=== PATIENT | male | born 1945 | race African-American/Black ===

== ENCOUNTER 2016-10-13 08:06 | Emergency (ER) | payer MEDICARE ==
[2016-10-13] MEDS ORDERED: NORMAL SALINE 1000 ML 1,000 ML IV ONE (08:37)
[2016-10-13 08:45] LABS: ABSOLUTE BASOPHILS # (AUTO) 0.1 10^3/uL (0.0-0.2); ABSOLUTE EOSINOPHILS # (AUTO) 0.2 10^3/uL (0.0-0.6); ABSOLUTE LYMPHOCYTES (AUTO) 2.2 10^3/uL (0.5-4.7); ABSOLUTE MONOCYTES (AUTO) 0.5 10^3/uL (0.1-1.4); ABSOLUTE NEUT (AUTO) 2.7 10^3/uL (1.7-8.2); BASOPHILS % (AUTO) 0.9 % (0-2); EOSINOPHILS % (AUTO) 2.9 % (0-6); HEMOGLOBIN 15.3 g/dL (13.5-17.0); HGB HCT DIFFERENCE -1.1; LYMPHOCYTES % (AUTO) 39.6 % (13-45); MEAN CORPUSCULAR HEMOGLOBIN 25.6 pg (27.0-33.4); MEAN CORPUSCULAR HGB CONC 32.7 g/dL (32.0-36.0); MEAN CORPUSCULAR VOLUME 78 fl (80-97); MONOCYTES % (AUTO) 8.8 % (3-13); RED BLOOD COUNT 6.01 10^6/uL (4.35-5.55); RED CELL DISTRIBUTION WIDTH 17.4 % (11.5-14.0); SEGMENTED NEUTROPHILS % (AUTO) 47.8 % (42-78); WHITE BLOOD COUNT 5.7 10^3/uL (4.0-10.5)
[2016-10-13 09:05] LABS: ANION GAP 12 (5-19); BLOOD UREA NITROGEN 11 mg/dL (7-20); CARBON DIOXIDE 26 mmol/L (22-30); CHLORIDE 104 mmol/L (98-107); CREATININE RESULT 0.86 mg/dL (0.52-1.25); GLUCOSE 100 mg/dL (75-110); SODIUM 142.3 mmol/L (137-145)
[2016-10-13] MEDS ORDERED: MECLIZINE HCL 25 MG TABLET PO ONE (09:51)
[2016-10-13 10:01] LABS: APPEARANCE,URINE CLEAR; BILIRUBIN,URINE NEGATIVE (NEGATIVE); GLUCOSE, URINE NEGATIVE (NEGATIVE); KETONES,URINE NEGATIVE (NEGATIVE); LEUKOCYTE ESTERASE,URINE NEGATIVE (NEGATIVE); NITRITE,URINE NEGATIVE (NEGATIVE); PROTEIN,URINE NEGATIVE (NEGATIVE); URINE SPECIFIC GRAVITY 1.008; UROBILINOGEN,URINE NEGATIVE mg/dL (<2.0)
[2016-10-13] MEDS ORDERED: CLONIDINE HCL 0.2 MG TABLET PO ONE (11:05)
[2016-10-13] MEDS ORDERED: CLONIDINE HCL 0.1 MG TABLET PO ONE (11:16)
--- NOTE | 2016-10-13 15:20 | ER Document Report ---
ED General - General Chief Complaint: Dizziness Stated Complaint: DIZZINESS TRAVEL OUTSIDE OF THE [place] IN LAST 30 DAYS: No - HPI Patient complains to provider of: dizziness Notes: Page coming and evaluated for dizziness. Patient states he has become dizzy over the last 24 hours worse when he sits up and tries to walk. Patient states had symptoms similar and was admitted in the past. States he was placed on a medication unaware of any other medication area otherwise patient has no complaints of head pain chest pain shortness of breath palpitations abdominal pain nausea vomiting - Related Data Allergies/Adverse Reactions: No Known Allergies Allergy (Verified 05/22/16 19:51) Past Medical History - Social History Smoking Status: Unknown if Ever Smoked Family History: Reviewed & Not Pertinent - Past Medical History Cardiac Medical History: Reports: Hx Hypercholesterolemia - DX FIVE YEARS AGO, Hx Hypertension - DX 20 YEARS AGO Pulmonary Medical History: Reports: Hx Pneumonia - TWO MONTHS AGO Denies: Hx Tuberculosis Endocrine Medical History: Reports: Hx Diabetes Mellitus Type 2 - DX 12 YEARS AGO Renal/ Medical History: Reports: Hx Benign Prostatic Hyperplasia GI Medical History: Reports: Hx Gastroesophageal Reflux Disease Musculoskeltal Medical History: Reports Hx Arthritis Psychiatric Medical History: Denies: Hx Depression Past Surgical History: Reports: Hx Orthopedic Surgery - Rotator cuff surgery both shoulders. Neck surgery after a fracture.. Denies: Hx Adenoidectomy - Immunizations Hx Diphtheria, Pertussis, Tetanus Vaccination: Yes Hx Pneumococcal Vaccination: 07/21/11 Review of Systems - Review of Systems Constitutional: No symptoms reported EENT: No symptoms reported Cardiovascular: No symptoms reported Respiratory: No symptoms reported Gastrointestinal: No symptoms reported Genitourinary: No symptoms reported Male Genitourinary: No symptoms reported Musculoskeletal: No symptoms reported Skin: No symptoms reported Hematologic/Lymphatic: No symptoms reported Neurological/Psychological: Other - Dizziness -: Yes All other systems reviewed and negative Physical Exam - Vital signs Vitals: Resp 14 10/13/16 08:30 Interpretation: Normal - General General appearance: Appears well, Alert - HEENT Head: Normocephalic, Atraumatic Eyes: Normal Pupils: PERRL - Respiratory Respiratory status: No respiratory distress Chest status: Nontender Breath sounds: Normal Chest palpation: Normal - Cardiovascular Rhythm: Regular Heart sounds: Normal auscultation Murmur: No - Abdominal Inspection: Normal Distension: No distension Bowel sounds: Normal Tenderness: Nontender Organomegaly: No organomegaly - Back Back: Normal, Nontender - Extremities General upper extremity: Normal inspection, Nontender, Normal color, Normal ROM , Normal temperature General lower extremity: Normal inspection, Nontender, Normal color, Normal ROM , Normal temperature, Normal weight bearing. No: Fernando's sign - Neurological Neuro grossly intact: Yes Cognition: Normal Orientation: AAOx4 [place] Coma Scale Eye Opening: Spontaneous [place] Coma Scale Verbal: Oriented [place] Coma Scale Motor: Obeys Commands [place] Coma Scale Total: 15 Speech: Normal Motor strength normal: LUE, RUE, LLE, RLE Sensory: Normal - Psychological Associated symptoms: Normal affect, Normal mood - Skin Skin Temperature: Warm Skin Moisture: Dry Skin Color: Normal Course - Re-evaluation Re-evalutation: 10/13/16 15:18 Patient coming in for evaluation of dizziness. Patient was evaluated by his PCP Dr. Krause here in ER recommended patient have an MRI performed. MRI performed showing no acute pathology. Patient's lab work also shows no acute pathology. Patient was seen able to ambulate down the ER cord or holding onto a wheelchair. Patient states he does have a walker home. Recommended the patient be discharged home diagnoses of benign positional vertigo continues medications at home along with a meclizine to follow-up with Dr. Krause next few days. - Vital Signs Vital signs: Temp Pulse Resp BP Pulse Ox 98.6 F 67 13 166/98 H 100 10/13/16 08:36 10/13/16 10:18 10/13/16 15:23 10/13/16 15:23 10/13/16 15:23 - Laboratory Result Diagrams: 10/13/16 08:20 10/13/16 08:20 Laboratory results interpreted by me: 10/13/16 08:20 RBC 6.01 H MCV 78 L MCH 25.6 L RDW 17.4 H Discharge - Discharge Clinical Impression: Dizziness Benign positional vertigo Qualifiers: Laterality: unspecified laterality Qualified Code(s): H81.10 - Benign paroxysmal vertigo, unspecified ear Condition: Good Disposition: HOME, SELF-CARE Instructions: Vertigo ([facility]), Dizziness ([facility]), Meclizine ([facility]) Additional Instructions: Please take medication as prescribed. Follow-up with Dr. Krause in the next 3-5 days. Referrals: MARYLIN KRAUSE MD [Primary Care Provider] - Follow up in 3-5 days
[2016-10-13 18:42] VITALS: BP 166/98
== END 2016-10-13 15:45 | disposition home or self-care (01) ==
LOC: ER 08:06
DX: H81.10 Benign paroxysmal vertigo, unspecified ear (principal); Z79.899 Other long term (current) drug therapy; E11.9 Type 2 diabetes mellitus without complications
CPT/HCPCS: 99284; 96360; 36415; 85025; 80048; 81001; 84484; 70551; 70450; A9270 ×2; J7030

== ENCOUNTER 2016-10-14 15:07 | Inpatient (IN) | payer MEDICARE ==
[2016-10-14 16:23] LABS: HEMATOCRIT 44.3 % (37.9-51.0); HEMOGLOBIN 14.5 g/dL (13.5-17.0); HGB HCT DIFFERENCE -0.8; MEAN CORPUSCULAR HEMOGLOBIN 25.6 pg (27.0-33.4); MEAN CORPUSCULAR HGB CONC 32.7 g/dL (32.0-36.0); MEAN CORPUSCULAR VOLUME 78 fl (80-97); RED BLOOD COUNT 5.67 10^6/uL (4.35-5.55); RED CELL DISTRIBUTION WIDTH 17.3 % (11.5-14.0); WHITE BLOOD COUNT 5.9 10^3/uL (4.0-10.5)
[2016-10-14 16:50] LABS: ALANINE AMINOTRANSFERASE 36 U/L (21-72); ALBUMIN 3.5 g/dL (3.5-5.0); ALKALINE PHOSPHATASE 103 U/L (38-126); ANION GAP 11 (5-19); ASPARTATE AMINO TRANSFERASE 27 U/L (17-59); BILIRUBIN,DIRECT 0.3 mg/dL (0.0-0.4); BILIRUBIN,TOTAL 0.7 mg/dL (0.2-1.3); BLOOD UREA NITROGEN 15 mg/dL (7-20); CALCIUM 9.3 mg/dL (8.4-10.2); CARBON DIOXIDE 26 mmol/L (22-30); CHLORIDE 104 mmol/L (98-107); CREATININE RESULT 1.06 mg/dL (0.52-1.25); GLUCOSE 188 mg/dL (75-110); POTASSIUM 4.1 mmol/L (3.6-5.0); TOTAL PROTEIN 6.5 g/dL (6.3-8.2)
[2016-10-14] MEDS ORDERED: ACETAMINOPHEN 325 MG TABLET PO PRN (17:20)
[2016-10-14] MEDS ORDERED: HYDRALAZINE HCL 10 MG TABLET PO PRN (17:22)
[2016-10-14] MEDS ORDERED: MECLIZINE HCL 12.5 MG TABLET PO PRN (17:24)
--- NOTE | 2016-10-14 17:31 | PDOC CONSULTATION ---
Consultation Consult Date: 10/14/16 Consult reason:: Management of severe hypertension and dizzy spells. History of Present Illness Admission Date/PCP: 10/14/16 15:07 MARYLIN KRAUSE MD History of Present Illness: JAYCOB GOODMAN is a 71 year old male With a history of diabetes mellitus hypertension CKD stage 2/3 is admitted with a history of worsening progress to dizzy spells. He has been initially seen in Dr. Krause's office but did not respond to corrections over there. He was then sent to the ER where he had CT scan of his brain followed by an MRI which did not show any acute lesions including in his cerebellar lesions. He was also found to have uncontrolled hypertension and for these reasons he was admitted for further evaluations and management. Patient gives a history of intermittent tinnitus. No hearing deficits. He says the dizziness is worse with head movements as well as when he tries to get up. No history of any presyncope, focal deficits. No history of chest pain shortness of breath or palpitations. No history of any headaches or seizures. After initial evaluation by me it looked like he could possibly have Mnire's disease or vertebrobasilar insufficiency with the remote possibility of benign positional vertigo. I ordered a cervical spine x-rays which shows appropriate changes which could be a reason for vertebrobasilar insufficiency. I would institute a course of meclizine along with a soft cervical collar and see how he progresses. Meanwhile I believe that his dizzy spells/vertigo could be responsible for some of his instability in his hypertension control as well. Past Medical History Cardiac Medical History: Reports: Hyperlipidemia - DX FIVE YEARS AGO, Hypertension-primary Pulmonary Medical History: Reports: Pneumonia - TWO MONTHS AGO Denies: Tuberculosis Endocrine Medical History: Reports: Diabetes Mellitus Type 2 - DX 12 YEARS AGO Renal/ Medical History: Reports: Benign Prostatic Hyperplasia, Chronic Kidney Disease Stage III GI Medical History: Reports: Gastroesophageal Reflux Disease Musculoskeltal Medical History: Reports: Arthritis Psychiatric Medical History: Denies: Depression Past Surgical History Past Surgical History: Reports: Orthopedic Surgery - Rotator cuff surgery both shoulders. Neck surgery after a fracture. Social History Smoking Status: Unknown if Ever Smoked Frequency of Alcohol Use: None Hx Recreational Drug Use: No Drugs: None Hx Prescription Drug Abuse: No Family History Parental Family History Reviewed: Yes - negative for ESRD Children Family History Reviewed: No Sibling(s) Family History Reviewed.: No Medication/Allergy Home Medications: Amlodipine Besylate [Norvasc 5 mg Tablet] 5 mg PO DAILY 10/14/16 Aspirin [Aspirin 325 mg Tablet] 325 mg PO DAILY 10/14/16 Atorvastatin Calcium [Lipitor 10 mg Tablet] 10 mg PO DAILY 10/14/16 Ergocalciferol (Vitamin D2) [Vitamin D2] 50,000 unit PO MO@1000 10/14/16 Ezetimibe [Zetia 10 mg Tablet] 10 mg PO DAILY 10/14/16 Fluticasone Propionate [Flonase Nasal [place] 50 Mcg/[place] 16 gm] 1 spray NASL DAILY 10/14/16 Furosemide [Lasix] 20 mg PO BID 10/14/16 Gabapentin [Neurontin 100 mg Capsule] 100 mg PO BID 10/14/16 Insulin Glargine,Hum.rec.anlog [Lantus Solostar] 50 unit SQ QHS 10/14/16 Linagliptin [Tradjenta] 5 mg PO DAILY 10/14/16 Meclizine HCl 25 mg PO Q8HP PRN 10/14/16 Omeprazole Magnesium [Prilosec Otc] 20 mg PO DAILY 10/14/16 Tamsulosin HCl [Flomax] 0.4 mg PO DAILY 10/14/16 Valsartan [Diovan 160 mg Tablet] 160 mg PO Q12 10/14/16 Allergies/Adverse Reactions: No Known Allergies Allergy (Verified 05/22/16 19:51) Review of Systems Constitutional: ABSENT: anorexia, fever(s), headache(s), night sweats, weakness Eyes: ABSENT: visual disturbances Ears: PRESENT: hearing changes - Intermittent tinnitus. Nose, Mouth, and Throat: ABSENT: headache(s), sore throat Cardiovascular: ABSENT: edema, orthropnea, palpitations Respiratory: ABSENT: dyspnea, hemoptysis Gastrointestinal: ABSENT: abdominal pain, bloating, coffee ground emesis, dysphagia, hematemesis, hematochezia Genitourinary: ABSENT: difficulty urinating, dysuria, hematuria Integumentary: ABSENT: lesions, pruritus Neurological: PRESENT: dizziness - Especially with the movement of his heads. He also has some disease) he gets up from a sitting posture. He has some pains on the back of his neck. No history of focal deficits.. ABSENT: abnormal speech, confusion, convulsions, focal weakness Psychiatric: ABSENT: anxiety, depression Physical Exam General appearance: PRESENT: no acute distress Eye exam: PRESENT: EOMI, PERRLA. ABSENT: conjunctiva pink, conjunctiva pale, nystagmus, scleral icterus Mouth exam: PRESENT: moist, neck supple Neck exam: ABSENT: carotid bruit, meningismus, tenderness, thyromegaly Respiratory exam: PRESENT: clear to auscultation yadiel. ABSENT: crackles, rales, rhonchi, tachypnea Cardiovascular exam: PRESENT: +S1, +S2 GI/Abdominal exam: PRESENT: normal bowel sounds - No renal bruits were heard, soft. ABSENT: diminished bowel sounds, distended, firm, tenderness Extremities exam: PRESENT: pedal edema - Trace edema Neurological exam: PRESENT: awake, oriented to person, oriented to place, oriented to time Skin exam: ABSENT: erythema, mottled, rash Results Laboratory Results: 10/14/16 16:15 10/14/16 16:15 10/14/16 10/14/16 16:15 16:15 WBC 5.9 RBC 5.67 H Hgb 14.5 Hct 44.3 MCV 78 L MCH 25.6 L MCHC 32.7 RDW 17.3 H Plt Count 165 Sodium 141.0 Potassium 4.1 Chloride 104 Carbon Dioxide 26 Anion Gap 11 BUN 15 Creatinine 1.06 Est GFR ( Amer) > 60 Est GFR (Non-Af Amer) > 60 Glucose 188 H Calcium 9.3 Total Bilirubin 0.7 AST 27 ALT 36 Alkaline Phosphatase 103 Total Protein 6.5 Albumin 3.5 Assessment & Plan - Diagnosis (1) Chronic kidney disease Qualifiers: Chronic kidney disease stage: stage 2 (mild) Qualified Code(s): N18.2 - Chronic kidney disease, stage 2 (mild) Is this a current diagnosis for this admission?: YesPlan: Stable (2) Dizziness Is this a current diagnosis for this admission?: YesPlan: DD includes Meniere"s , VBI and BPV. Trial of meclizine. (3) Hypertension Qualifiers: Hypertension type: essential hypertension Qualified Code(s): I10 - Essential (primary) hypertension Is this a current diagnosis for this admission?: YesPlan: Uncontrolled.Monitor on current meds.? Compliance issues and maybe at times he has overmedicated to have resulted in lower BP. Has gregg poor grasp of subject. (4) Type 2 diabetes mellitus Qualifiers: Diabetes mellitus complication status: with unspecified complications Is this a current diagnosis for this admission?: Yes
--- NOTE | 2016-10-14 17:33 | PDOC H&P ---
History of Present Illness Admission Date/PCP: 10/14/16 15:07 MARYLIN KRAUSE MD Patient complains of: Vertigo or dizziness and uncontrolled blood pressures History of Present Illness: JAYCOB GOODMAN is a 71 year old male This is a 71-year-old male with a significant medical problems including the history of the hypertensions chronic kidney disease hyperlipidemia and carotid artery disease and history of the stroke went to the emergency department yesterday with a complaining of feeling dizzy and unable to walk and patient initial workup including the CT of the head and MRI of the head and all blood work was negativePatient was discharged but patient's today's noticed that he is still unable to walk because every time he tried to stand up he started feeling dizzy and wobbly patient's also blood pressure was running highPatient' s was admitting in the hospital several months back for the same problems and very extensive workup done including the cardiac workup done and was all stable patient was bradycardic and patient's metoprolol was stopped and patient was finding orthostatic hypotension's and the patient's nifedipine was also stop and put a myoglobin at the time. Patient's denied any chest pain denied any shortness of the breath. Patient's also eating a lot of salty foods since last several days and they may be contributed patient's elevated the blood pressures but the patient's age and with the symptoms decided to admit in the hospital for further evaluation and the treatmentsFamily is also present in the office and angry about that Past Medical History Cardiac Medical History: Reports: Hyperlipidema - DX FIVE YEARS AGO, Hypertension - DX 20 YEARS AGO Pulmonary Medical History: Reports: Pneumonia - TWO MONTHS AGO Denies: Tuberculosis Neurological Medical History: Reports: Ischemic CVA, Other Neurological History Note: History of the carotid stenosis on the right side it is 100% and patient see the vascular surgeon and suggest nothing else can to do Endocrine Medical History: Reports: Diabetes Mellitus Type 2 - DX 12 YEARS AGO Renal/ Medical History: Reports: Chronic Kidney Disease GI Medical History: Reports: Gastroesophageal Reflux Disease Musculoskeltal Medical History: Reports: Arthritis Psychiatric Medical History: Denies: Depression Past Surgical History Past Surgical History: Reports: Orthopedic Surgery - Rotator cuff surgery both shoulders. Neck surgery after a fracture. Social History Smoking Status: Never Smoker Frequency of Alcohol Use: None Hx Recreational Drug Use: No Drugs: None Hx Prescription Drug Abuse: No Family History Family History: Reviewed & Not Pertinent Parental Family History Reviewed: Yes Children Family History Reviewed: Yes Sibling(s) Family History Reviewed.: Yes Medication/Allergy Home Medications: Amlodipine Besylate [Norvasc 5 mg Tablet] 5 mg PO DAILY 10/14/16 Aspirin [Aspirin 325 mg Tablet] 325 mg PO DAILY 10/14/16 Atorvastatin Calcium [Lipitor 10 mg Tablet] 10 mg PO DAILY 10/14/16 Ergocalciferol (Vitamin D2) [Vitamin D2] 50,000 unit PO MO@1000 10/14/16 Ezetimibe [Zetia 10 mg Tablet] 10 mg PO DAILY 10/14/16 Fluticasone Propionate [Flonase Nasal [place] 50 Mcg/[place] 16 gm] 1 spray NASL DAILY 10/14/16 Furosemide [Lasix] 20 mg PO BID 10/14/16 Gabapentin [Neurontin 100 mg Capsule] 100 mg PO BID 10/14/16 Insulin Glargine,Hum.rec.anlog [Lantus Solostar] 50 unit SQ QHS 10/14/16 Linagliptin [Tradjenta] 5 mg PO DAILY 10/14/16 Meclizine HCl 25 mg PO Q8HP PRN 10/14/16 Omeprazole Magnesium [Prilosec Otc] 20 mg PO DAILY 10/14/16 Tamsulosin HCl [Flomax] 0.4 mg PO DAILY 10/14/16 Valsartan [Diovan 160 mg Tablet] 160 mg PO Q12 10/14/16 Allergies/Adverse Reactions: No Known Allergies Allergy (Verified 05/22/16 19:51) Review of Systems Constitutional: PRESENT: weakness. ABSENT: chills, fever(s), headache(s), weight gain, weight loss Eyes: ABSENT: visual disturbances Ears: ABSENT: hearing changes Cardiovascular: ABSENT: chest pain, dyspnea on exertion, edema, orthropnea, palpitations Respiratory: ABSENT: cough, hemoptysis Gastrointestinal: ABSENT: abdominal pain, constipation, diarrhea, hematemesis, hematochezia, nausea, vomiting Genitourinary: ABSENT: dysuria, hematuria Musculoskeletal: ABSENT: joint swelling Integumentary: ABSENT: rash, wounds Neurological: PRESENT: abnormal gait, dizziness, vertigo. ABSENT: abnormal speech, confusion, focal weakness, syncope Psychiatric: ABSENT: anxiety, depression, homidical ideation, suicidal ideation Endocrine: ABSENT: cold intolerance, heat intolerance, menstrual abnormalities, polydipsia, polyuria Hematologic/Lymphatic: ABSENT: easy bleeding, easy bruising, lymphadenopathy Physical Exam General appearance: PRESENT: no acute distress Head exam: PRESENT: atraumatic, normocephalic Eye exam: PRESENT: conjunctiva pink, EOMI, PERRLA. ABSENT: scleral icterus Ear exam: PRESENT: normal external ear exam Mouth exam: PRESENT: moist, tongue midline Neck exam: PRESENT: full ROM. ABSENT: carotid bruit, JVD, lymphadenopathy, thyromegaly Respiratory exam: PRESENT: clear to auscultation yadiel Cardiovascular exam: PRESENT: RRR. ABSENT: diastolic murmur, rubs, systolic murmur Pulses: PRESENT: normal dorsalis pedis pul, +2 pedal pulses bilateral Vascular exam: PRESENT: normal capillary refill GI/Abdominal exam: PRESENT: normal bowel sounds, soft. ABSENT: distended, guarding, mass, organolmegaly, rebound, tenderness Rectal exam: PRESENT: deferred Extremities exam: PRESENT: pedal edema Musculoskeletal exam: PRESENT: other Additional comments: Currently in a wheelchair-bound Neurological exam: PRESENT: alert, awake, oriented to person, oriented to place , oriented to time, oriented to situation, abnormal gait, CN II-XII grossly intact. ABSENT: motor sensory deficit Psychiatric exam: PRESENT: appropriate affect, normal mood. ABSENT: homicidal ideation, suicidal ideation Skin exam: PRESENT: dry, intact, warm. ABSENT: cyanosis, rash Results Laboratory Results: 10/14/16 16:15 10/14/16 16:15 10/14/16 10/14/16 16:15 16:15 WBC 5.9 RBC 5.67 H Hgb 14.5 Hct 44.3 MCV 78 L MCH 25.6 L MCHC 32.7 RDW 17.3 H Plt Count 165 Sodium 141.0 Potassium 4.1 Chloride 104 Carbon Dioxide 26 Anion Gap 11 BUN 15 Creatinine 1.06 Est GFR ( Amer) > 60 Est GFR (Non-Af Amer) > 60 Glucose 188 H Calcium 9.3 Total Bilirubin 0.7 AST 27 ALT 36 Alkaline Phosphatase 103 Total Protein 6.5 Albumin 3.5 Assessment & Plan - Diagnosis (1) Hypertension Qualifiers: Hypertension type: essential hypertension Qualified Code(s): I10 - Essential (primary) hypertension Is this a current diagnosis for this admission?: YesPlan: Uncontrolled hypertension's will admit the patient in the telemetry bed and adjust the blood pressure medications and consult Dr. Loco the patient already seen in 2 weeks back for further evaluations (2) Dizziness Is this a current diagnosis for this admission?: YesPlan: Patient had a CT head and MRI of the head was negative yesterday patient's does not have any further neurological sign at believe is most likely vertigo with t (3) Benign positional vertigo Qualifiers: Laterality: unspecified laterality Qualified Code(s): H81.10 - Benign paroxysmal vertigo, unspecified ear Is this a current diagnosis for this admission?: YesPlan: Start the patient's meclizine 25 mg p.o. q. 8 (4) Carotid artery disease Qualifiers: Laterality: bilateral Qualified Code(s): I77.9 - Disorder of arteries and arterioles, unspecified Is this a current diagnosis for this admission?: YesPlan: Patient already seen by vascular surgeon and suggest the continues to medical management (5) Orthostatic hypotension Is this a current diagnosis for this admission?: YesPlan: We will check the orthostatic blood pressures (6) Type 2 diabetes mellitus Qualifiers: Diabetes mellitus complication status: with unspecified complications Is this a current diagnosis for this admission?: YesPlan: Sliding scale with [facility] protocol (7) Chronic kidney disease Qualifiers: Chronic kidney disease stage: stage 2 (mild) Qualified Code(s): N18.2 - Chronic kidney disease, stage 2 (mild) Is this a current diagnosis for this admission?: YesPlan: Currently stable - Time Time Spent: 50 to 70 Minutes Medications reviewed and adjusted accordingly: Yes Anticipated discharge: Home Within: Other - Inpatient Certification Medical Necessity: Significant Comorbidiites Make Outpatient Treatment Too Risky , Need Close Monitoring Due to Risk of Patient Decompensation Post Hospital Care: D/C Inspector Outside Production Documentation - Plan Summary Plan Summary: Admit the patient in the telemetry bed adjust the blood pressure medications and continues to monitor the patient's. Discussed with the patient and the family about the patient's current conditions and I hope the patient's continues to be improved
[2016-10-14 17:59] LABS: CREATINE KINASE MB 2.56 ng/mL (<4.55)
[2016-10-14 18:00] LABS: TROPONIN I < 0.012 ng/mL
[2016-10-14] MEDS ORDERED: GLUCAGON,HUMAN RECOMB 1 MG INJ IM PRN (20:16)
[2016-10-14] MEDS ORDERED: DEXTROSE 40% GEL 15 GM TUBE PO PRN ×2 (20:16)
[2016-10-14] MEDS ORDERED: DEXTROSE 50%-WATER 25 GM/50 ML DISP.SYRIN IV PRN ×2 (20:16)
[2016-10-14] MEDS: VALSARTAN 160 MG TABLET PO SCH (21:50)
[2016-10-14] MEDS: INSULIN LISPRO 100 UNIT/ML 3 ML VIAL SUBCUT PRN (22:41)
[2016-10-14] MEDS: INSULIN GLARGINE,HUM.REC.ANLOG 300 UNIT/3 ML INSULN.PEN SUBCUT SCH (22:41)
[2016-10-15 01:04] LABS: CREATINE KINASE MB 2.45 ng/mL (<4.55)
[2016-10-15 01:06] LABS: TROPONIN I < 0.012 ng/mL
[2016-10-15 07:16] LABS: ABSOLUTE EOSINOPHILS # (AUTO) 0.1 10^3/uL (0.0-0.6); ABSOLUTE LYMPHOCYTES (AUTO) 2.1 10^3/uL (0.5-4.7); ABSOLUTE MONOCYTES (AUTO) 0.5 10^3/uL (0.1-1.4); ABSOLUTE NEUT (AUTO) 2.4 10^3/uL (1.7-8.2); BASOPHILS % (AUTO) 0.6 % (0-2); EOSINOPHILS % (AUTO) 2.4 % (0-6); HEMOGLOBIN 14.2 g/dL (13.5-17.0); HGB HCT DIFFERENCE -0.4; LYMPHOCYTES % (AUTO) 40.1 % (13-45); MEAN CORPUSCULAR HEMOGLOBIN 25.6 pg (27.0-33.4); MEAN CORPUSCULAR HGB CONC 33.1 g/dL (32.0-36.0); MEAN CORPUSCULAR VOLUME 77 fl (80-97); RED BLOOD COUNT 5.56 10^6/uL (4.35-5.55); RED CELL DISTRIBUTION WIDTH 17.1 % (11.5-14.0); SEGMENTED NEUTROPHILS % (AUTO) 46.9 % (42-78); WHITE BLOOD COUNT 5.2 10^3/uL (4.0-10.5)
[2016-10-15 07:43] LABS: ANION GAP 9 (5-19); BLOOD UREA NITROGEN 15 mg/dL (7-20); CALCIUM 9.6 mg/dL (8.4-10.2); CARBON DIOXIDE 28 mmol/L (22-30); CHLORIDE 107 mmol/L (98-107); CREATINE KINASE 169 U/L (55-170); CREATININE RESULT 1.08 mg/dL (0.52-1.25); GLUCOSE 73 mg/dL (75-110); MAGNESIUM 2.1 mg/dL (1.6-2.3); POTASSIUM 3.6 mmol/L (3.6-5.0); SODIUM 143.9 mmol/L (137-145)
[2016-10-15 07:47] LABS: CREATINE KINASE MB 2.34 ng/mL (<4.55)
[2016-10-15 07:49] LABS: TROPONIN I < 0.012 ng/mL
[2016-10-15] MEDS: ENOXAPARIN SODIUM INJ 40 MG/0.4 ML DISP.SYRIN SUBCUT SCH (08:34)
--- NOTE | 2016-10-15 09:25 | PDOC PROGRESS REPORT ---
Subjective Progress Note for:: 10/15/16 Subjective:: Patient is doing well denied any chest pain denied any shortness of the breath. Patient's dizziness and vertigo symptoms also improved. Patient's blood pressures remained stable still little elevated. Patient seen by Dr. Dahl order the vascular ultrasound which is also negative Physical Exam Vital Signs: Temp Pulse Resp BP Pulse Ox 98.5 F 58 L 14 179/77 H 100 10/15/16 07:00 10/15/16 07:00 10/15/16 07:00 10/15/16 07:00 10/15/16 07:00 Intake & Output 10/14/16 10/15/16 10/16/16 06:59 06:59 06:59 Intake Total 350 Balance 350 Weight 112.9 kg General appearance: PRESENT: no acute distress, well-developed, well-nourished Head exam: PRESENT: atraumatic, normocephalic Eye exam: PRESENT: conjunctiva pink, EOMI, PERRLA. ABSENT: scleral icterus Ear exam: PRESENT: normal external ear exam Mouth exam: PRESENT: moist, tongue midline Neck exam: PRESENT: full ROM. ABSENT: carotid bruit, JVD, lymphadenopathy, thyromegaly Respiratory exam: PRESENT: clear to auscultation yadiel Cardiovascular exam: PRESENT: RRR. ABSENT: diastolic murmur, rubs, systolic murmur Pulses: PRESENT: normal dorsalis pedis pul, +2 pedal pulses bilateral Vascular exam: PRESENT: normal capillary refill GI/Abdominal exam: PRESENT: normal bowel sounds, soft. ABSENT: distended, guarding, mass, organolmegaly, rebound, tenderness Rectal exam: PRESENT: deferred Extremities exam: PRESENT: pedal edema Neurological exam: PRESENT: alert, awake, oriented to person, oriented to place , oriented to time, oriented to situation, CN II-XII grossly intact. ABSENT: motor sensory deficit Psychiatric exam: PRESENT: appropriate affect, normal mood. ABSENT: homicidal ideation, suicidal ideation Skin exam: PRESENT: dry, intact, warm. ABSENT: cyanosis, rash Results Laboratory Results: 10/15/16 06:45 10/15/16 06:45 10/14/16 10/14/16 10/15/16 16:15 16:15 06:45 WBC 5.9 RBC 5.67 H Hgb 14.5 Hct 44.3 MCV 78 L MCH 25.6 L MCHC 32.7 RDW 17.3 H Plt Count 165 Seg Neutrophils % Lymphocytes % Monocytes % Eosinophils % Basophils % Absolute Neutrophils Absolute Lymphocytes Absolute Monocytes Absolute Eosinophils Absolute Basophils Sodium 141.0 143.9 Potassium 4.1 3.6 Chloride 104 107 Carbon Dioxide 26 28 Anion Gap 11 9 BUN 15 15 Creatinine 1.06 1.08 Est GFR ( Amer) > 60 > 60 Est GFR (Non-Af Amer) > 60 > 60 Glucose 188 H 73 L Calcium 9.3 9.6 Magnesium 2.1 Total Bilirubin 0.7 AST 27 ALT 36 Alkaline Phosphatase 103 Total Protein 6.5 Albumin 3.5 10/15/16 06:45 WBC 5.2 RBC 5.56 H Hgb 14.2 Hct 43.0 MCV 77 L MCH 25.6 L MCHC 33.1 RDW 17.1 H Plt Count 189 Seg Neutrophils % 46.9 Lymphocytes % 40.1 Monocytes % 10.0 Eosinophils % 2.4 Basophils % 0.6 Absolute Neutrophils 2.4 Absolute Lymphocytes 2.1 Absolute Monocytes 0.5 Absolute Eosinophils 0.1 Absolute Basophils 0.0 Sodium Potassium Chloride Carbon Dioxide Anion Gap BUN Creatinine Est GFR ( Amer) Est GFR (Non-Af Amer) Glucose Calcium Magnesium Total Bilirubin AST ALT Alkaline Phosphatase Total Protein Albumin 10/14/16 10/14/16 10/15/16 16:15 16:15 00:03 Creatine Kinase 202 H 176 H CK-MB (CK-2) 2.56 Troponin I < 0.012 10/15/16 10/15/16 10/15/16 00:03 06:45 06:45 Creatine Kinase 169 CK-MB (CK-2) 2.45 2.34 Troponin I < 0.012 < 0.012 Impressions: Cervical Spine X-Ray 10/14/16 00:00 IMPRESSION: CHRONIC DEGENERATIVE CHANGES. NO ACUTE FINDINGS. Vascular Ultrasound 10/14/16 00:00 IMPRESSION: NO DOPPLER EVIDENCE OF HEMODYNAMICALLY SIGNIFICANT RENAL ARTERY STENOSIS. Assessment & Plan - Diagnosis (1) Hypertension Qualifiers: Hypertension type: essential hypertension Qualified Code(s): I10 - Essential (primary) hypertension Is this a current diagnosis for this admission?: YesPlan: Continues to current medications (2) Dizziness Is this a current diagnosis for this admission?: YesPlan: Most likely underlying vertigo will continue some meclizine (3) Benign positional vertigo Qualifiers: Laterality: unspecified laterality Qualified Code(s): H81.10 - Benign paroxysmal vertigo, unspecified ear Is this a current diagnosis for this admission?: YesPlan: Start the patient's meclizine 25 mg p.o. q. 8 (4) Carotid artery disease Qualifiers: Laterality: bilateral Qualified Code(s): I77.9 - Disorder of arteries and arterioles, unspecified Is this a current diagnosis for this admission?: YesPlan: Patient already seen by vascular surgeon and suggest the continues to medical management (5) Orthostatic hypotension Is this a current diagnosis for this admission?: YesPlan: We will check the orthostatic blood pressures (6) Type 2 diabetes mellitus Qualifiers: Diabetes mellitus complication status: with unspecified complications Is this a current diagnosis for this admission?: YesPlan: Sliding scale with [facility] protocol (7) Chronic kidney disease Qualifiers: Chronic kidney disease stage: stage 2 (mild) Qualified Code(s): N18.2 - Chronic kidney disease, stage 2 (mild) Is this a current diagnosis for this admission?: YesPlan: Currently stable - Time Time Spent with patient: 15-24 minutes Medications reviewed and adjusted accordingly: Yes Anticipated discharge: Home Within: within 24 hours - Inpatient Certification Medical Necessity: Need Close Monitoring Due to Risk of Patient Decompensation 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
--- NOTE | 2016-10-15 09:35 | EKG REPORT ---
SEVERITY:- ABNORMAL ECG - SINUS RHYTHM NONSPECIFIC T ABNORMALITIES, LATERAL LEADS : Confirmed by: Preeti Jane 15-Oct-2016 09:34:39
[2016-10-15] MEDS ORDERED: AMLODIPINE BESYLATE 5 MG TABLET PO SCH (10:00)
[2016-10-15] MEDS ORDERED: (PENDING PHARMACY ID) (Linagliptin [Tradjenta] 5 MG) PO SCH (10:00)
[2016-10-15] MEDS: ATORVASTATIN CALCIUM 10 MG TABLET PO SCH (11:04)
[2016-10-15] MEDS: TAMSULOSIN HCL 0.4 MG CAP.SR.24H PO SCH (11:04)
[2016-10-15] MEDS: EZETIMIBE 10 MG TABLET PO SCH (11:05)
[2016-10-15] MEDS: LANSOPRAZOLE 15 MG TAB.RAP.DR PO SCH (11:06)
[2016-10-15] MEDS: GABAPENTIN 100 MG CAPSULE PO SCH ×2 (11:06→21:21)
[2016-10-15] MEDS: ASPIRIN 325 MG TABLET PO SCH (11:06)
[2016-10-15] MEDS: VALSARTAN 160 MG TABLET PO SCH ×2 (11:07→21:21)
[2016-10-15] MEDS: DOCUSATE SODIUM 100 MG CAPSULE PO SCH (11:07)
[2016-10-15] MEDS: FLUTICASONE NASAL SPRAY 50 MCG/SPRY 120 SPRAY/16 GM NASL SCH (11:07)
[2016-10-15] MEDS: FUROSEMIDE 20 MG TABLET PO SCH ×2 (11:07→17:55)
--- NOTE | 2016-10-15 12:08 | XCELERA REPORT ---
[address] [address] Lower Extremity Venous Evaluation Name: JAYCOB GOODMAN Age: 71 yrs Gender: Male : 1945 Patient Status: Inpatient Patient Location: [id number]\435\[id number]\A Study Date: 10/15/2016 10:27 AM Procedure: Color flow and duplex imaging bilaterally of the veins of the lower extremities as well as the Common Femoral veins. Reason For Study: edema/leg pain Ordering Physician: MARYLIN KRAUSE Performed By: Gwen Hallman Right Sided Venous Evaluation Normal vessel filling wall to wall, compression and augmentation as well as Colour flow down to the infrageniculate veins. Left Sided Venous Evaluation Normal vessel filling wall to wall, compression and augmentation as well as Colour flow down to the infrageniculate veins. Interpretation Summary No duplex evidence of DVT or obstruction in the bilateral lower extremities. : MARYLIN KRAUSE > Abhishek Ramírez
--- NOTE | 2016-10-15 12:56 | Physician Advisory Note ---
Physician Advisor ProgressNote .: Pursuant to the plan for [facility], I have reviewed the medical record for this patient. Physician Advisor Statement: Possible documentation opportunities if attending agrees: 1. Nephrology consult note is missing impression/plan information. 2. "Medical Necessity" - pt appears most appropriate for Outpt Obs status initially. - Please document clinical reasons why pt not safe for d/c on 10/15 with f/u outpt, or else change to Outpt Obs status. (see below) As always, if concerned about any unstable VS or abnormal labs, please comment on them & note what doing about them, & please document each day the potential clinical problems you are concerned could occur if pt not kept in hospital for tx at this time. 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 Pt unable to walk. Had gone to ED on 10/13, but scan/bloodwork ok then & he was sent home. However, still dizzy/wobbly w/ standing, BP high. had eaten plenty of salty foods recently. (+) BP 169/86, HR 63 initially. Attending ordered consult to nephrology, tele, continued Lasix/Flomax/Diovan/ Norvasc/Zetia/Neurontin/Lantus/Tradjenta at usual doses, + prn meclinzine (at lower dose than outpt), hydralazine prn po. Status: A pt with dizziness/ambulatory dysfunction is generally Outpt Obs until proven otherwise. This pt has been found to have (+)orthostasis by BP standing on 10/14. He is elderly w/HTN & CKD stage 2-3. reportedly, although current labs have est'd GFR >60. He is currently ordered no IVF or IV meds. Note 10/15 indicates dizziness is improved, with plan for PT eval & continued current (po) meds. Therefore, severity of illness & intensity of service sound rather low acuity so far, for an admission. However, attending may know of add'l clinical issues that require ongoing hospital care/monitoring for a 2nd MN, which just haven't made it yet into documentation . Contacted attending, who indicates he will document more explicitly the clinical reasons pt unsafe for d/c today, his clinical concerns, why tx/ continued monitoring in inpatient hospital setting medically reasonable & necessary to protect pt's health, safety, & medical condition, supporting Inpt status. Thanks for your help with documentation accuracy/specificity improvement! Lynette Campbell MD [facility] Physician Advisor, Fellow of [facility]
[2016-10-15] MEDS: AMLODIPINE BESYLATE 5 MG TABLET PO SCH (17:54)
[2016-10-15] MEDS: INSULIN GLARGINE,HUM.REC.ANLOG 300 UNIT/3 ML INSULN.PEN SUBCUT SCH (21:21)
[2016-10-15] MEDS: INSULIN LISPRO 100 UNIT/ML 3 ML VIAL SUBCUT PRN (21:22)
[2016-10-16 06:58] LABS: ABSOLUTE EOSINOPHILS # (AUTO) 0.1 10^3/uL (0.0-0.6); ABSOLUTE LYMPHOCYTES (AUTO) 2.2 10^3/uL (0.5-4.7); ABSOLUTE MONOCYTES (AUTO) 0.5 10^3/uL (0.1-1.4); ABSOLUTE NEUT (AUTO) 2.5 10^3/uL (1.7-8.2); BASOPHILS % (AUTO) 0.5 % (0-2); EOSINOPHILS % (AUTO) 2.6 % (0-6); HEMATOCRIT 43.9 % (37.9-51.0); HEMOGLOBIN 14.6 g/dL (13.5-17.0); HGB HCT DIFFERENCE -0.1; LYMPHOCYTES % (AUTO) 41.8 % (13-45); MEAN CORPUSCULAR HGB CONC 33.2 g/dL (32.0-36.0); MEAN CORPUSCULAR VOLUME 78 fl (80-97); MONOCYTES % (AUTO) 8.6 % (3-13); RED BLOOD COUNT 5.62 10^6/uL (4.35-5.55); RED CELL DISTRIBUTION WIDTH 17.2 % (11.5-14.0); SEGMENTED NEUTROPHILS % (AUTO) 46.5 % (42-78); WHITE BLOOD COUNT 5.3 10^3/uL (4.0-10.5)
[2016-10-16 07:18] LABS: ANION GAP 13 (5-19); BLOOD UREA NITROGEN 15 mg/dL (7-20); CALCIUM 8.9 mg/dL (8.4-10.2); CARBON DIOXIDE 26 mmol/L (22-30); CHLORIDE 103 mmol/L (98-107); CREATININE RESULT 1.02 mg/dL (0.52-1.25); GLUCOSE 85 mg/dL (75-110); POTASSIUM 3.8 mmol/L (3.6-5.0); SODIUM 141.5 mmol/L (137-145)
[2016-10-16] MEDS: ENOXAPARIN SODIUM INJ 40 MG/0.4 ML DISP.SYRIN SUBCUT SCH (08:06)
--- NOTE | 2016-10-16 08:27 | EKG REPORT ---
SEVERITY:- NORMAL ECG - SINUS RHYTHM : Confirmed by: Preeti Jane 16-Oct-2016 08:26:36
--- NOTE | 2016-10-16 10:07 | PDOC PROGRESS REPORT ---
Subjective Progress Note for:: 10/16/16 Subjective:: Patient is currently doing wellDenied any chest pain denied any shortness of the breathPatients walk with the physical therapyPatient's vertigo symptoms is also getting betterPatient's blood pressure is still elevated and increase the amlodipine 5 mg twice a day Physical Exam Vital Signs: Temp Pulse Resp BP Pulse Ox 97.8 F 52 L 18 165/74 H 100 10/16/16 07:43 10/16/16 07:43 10/16/16 07:43 10/16/16 07:43 10/16/16 07:43 Intake & Output 10/15/16 10/16/16 10/17/16 06:59 06:59 06:59 Intake Total 350 600 Balance 350 600 Weight 112.9 kg General appearance: PRESENT: no acute distress, well-developed, well-nourished Head exam: PRESENT: atraumatic, normocephalic Eye exam: PRESENT: conjunctiva pink, EOMI, PERRLA. ABSENT: scleral icterus Ear exam: PRESENT: normal external ear exam Mouth exam: PRESENT: moist, tongue midline Neck exam: PRESENT: full ROM. ABSENT: carotid bruit, JVD, lymphadenopathy, thyromegaly Respiratory exam: PRESENT: clear to auscultation yadiel Cardiovascular exam: PRESENT: RRR. ABSENT: diastolic murmur, rubs, systolic murmur Pulses: PRESENT: normal dorsalis pedis pul, +2 pedal pulses bilateral Vascular exam: PRESENT: normal capillary refill GI/Abdominal exam: PRESENT: normal bowel sounds, soft. ABSENT: distended, guarding, mass, organolmegaly, rebound, tenderness Rectal exam: PRESENT: deferred Neurological exam: PRESENT: alert, awake, oriented to person, oriented to place , oriented to time, oriented to situation, CN II-XII grossly intact. ABSENT: motor sensory deficit Psychiatric exam: PRESENT: appropriate affect, normal mood. ABSENT: homicidal ideation, suicidal ideation Skin exam: PRESENT: dry, intact, warm. ABSENT: cyanosis, rash Results Laboratory Results: 10/16/16 06:14 10/16/16 06:14 10/16/16 10/16/16 06:14 06:14 WBC 5.3 RBC 5.62 H Hgb 14.6 Hct 43.9 MCV 78 L MCH 26.0 L MCHC 33.2 RDW 17.2 H Plt Count 180 Seg Neutrophils % 46.5 Lymphocytes % 41.8 Monocytes % 8.6 Eosinophils % 2.6 Basophils % 0.5 Absolute Neutrophils 2.5 Absolute Lymphocytes 2.2 Absolute Monocytes 0.5 Absolute Eosinophils 0.1 Absolute Basophils 0.0 Sodium 141.5 Potassium 3.8 Chloride 103 Carbon Dioxide 26 Anion Gap 13 BUN 15 Creatinine 1.02 Est GFR ( Amer) > 60 Est GFR (Non-Af Amer) > 60 Glucose 85 Calcium 8.9 10/14/16 18:35 Clean Catch Midstream Urine Culture - Final NO GROWTH 2 DAYS 10/14/16 10/14/16 10/15/16 16:15 16:15 00:03 Creatine Kinase 202 H 176 H CK-MB (CK-2) 2.56 Troponin I < 0.012 10/15/16 10/15/16 10/15/16 00:03 06:45 06:45 Creatine Kinase 169 CK-MB (CK-2) 2.45 2.34 Troponin I < 0.012 < 0.012 Impressions: Cervical Spine X-Ray 10/14/16 00:00 IMPRESSION: CHRONIC DEGENERATIVE CHANGES. NO ACUTE FINDINGS. Vascular Ultrasound 10/14/16 00:00 IMPRESSION: NO DOPPLER EVIDENCE OF HEMODYNAMICALLY SIGNIFICANT RENAL ARTERY STENOSIS. Assessment & Plan - Diagnosis (1) Hypertension Qualifiers: Hypertension type: essential hypertension Qualified Code(s): I10 - Essential (primary) hypertension Is this a current diagnosis for this admission?: YesPlan: Continues to current medications (2) Dizziness Is this a current diagnosis for this admission?: YesPlan: All improving and better (3) Benign positional vertigo Qualifiers: Laterality: unspecified laterality Qualified Code(s): H81.10 - Benign paroxysmal vertigo, unspecified ear Is this a current diagnosis for this admission?: YesPlan: Continues to meclizine (4) Carotid artery disease Qualifiers: Laterality: bilateral Qualified Code(s): I77.9 - Disorder of arteries and arterioles, unspecified Is this a current diagnosis for this admission?: YesPlan: Patient already seen by vascular surgeon and suggest the continues to medical management (5) Orthostatic hypotension Is this a current diagnosis for this admission?: YesPlan: We will check the orthostatic blood pressures (6) Type 2 diabetes mellitus Qualifiers: Diabetes mellitus complication status: with unspecified complications Is this a current diagnosis for this admission?: YesPlan: Sliding scale with [facility] protocol (7) Chronic kidney disease Qualifiers: Chronic kidney disease stage: stage 2 (mild) Qualified Code(s): N18.2 - Chronic kidney disease, stage 2 (mild) Is this a current diagnosis for this admission?: YesPlan: Currently stable - Time Time Spent with patient: 15-24 minutes Medications reviewed and adjusted accordingly: Yes Anticipated discharge: Home Within: within 24 hours - Inpatient Certification Medical Necessity: Need Close Monitoring Due to Risk of Patient Decompensation 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
[2016-10-16] MEDS: GABAPENTIN 100 MG CAPSULE PO SCH ×2 (10:57→21:13)
[2016-10-16] MEDS: ASPIRIN 325 MG TABLET PO SCH (10:57)
[2016-10-16] MEDS: AMLODIPINE BESYLATE 5 MG TABLET PO SCH ×2 (10:58→17:21)
[2016-10-16] MEDS: FUROSEMIDE 20 MG TABLET PO SCH ×2 (10:58→17:21)
[2016-10-16] MEDS: DOCUSATE SODIUM 100 MG CAPSULE PO SCH (10:58)
[2016-10-16] MEDS: EZETIMIBE 10 MG TABLET PO SCH (10:58)
[2016-10-16] MEDS: ATORVASTATIN CALCIUM 10 MG TABLET PO SCH (10:58)
[2016-10-16] MEDS: LANSOPRAZOLE 15 MG TAB.RAP.DR PO SCH (10:58)
[2016-10-16] MEDS: TAMSULOSIN HCL 0.4 MG CAP.SR.24H PO SCH (10:59)
[2016-10-16] MEDS: FLUTICASONE NASAL SPRAY 50 MCG/SPRY 120 SPRAY/16 GM NASL SCH (10:59)
[2016-10-16] MEDS: VALSARTAN 160 MG TABLET PO SCH ×2 (11:01→21:12)
[2016-10-16] MEDS: HYDRALAZINE HCL 25 MG TABLET PO SCH ×2 (14:34→21:12)
[2016-10-16] MEDS: INSULIN GLARGINE,HUM.REC.ANLOG 300 UNIT/3 ML INSULN.PEN SUBCUT SCH (21:17)
[2016-10-16] MEDS: INSULIN LISPRO 100 UNIT/ML 3 ML VIAL SUBCUT PRN (21:18)
[2016-10-17] MEDS: HYDRALAZINE HCL 25 MG TABLET PO SCH (05:14)
[2016-10-17 06:43] LABS: ABSOLUTE EOSINOPHILS # (AUTO) 0.1 10^3/uL (0.0-0.6); ABSOLUTE MONOCYTES (AUTO) 0.4 10^3/uL (0.1-1.4); BASOPHILS % (AUTO) 1.1 % (0-2); EOSINOPHILS % (AUTO) 2.8 % (0-6); HEMATOCRIT 43.4 % (37.9-51.0); HEMOGLOBIN 14.4 g/dL (13.5-17.0); HGB HCT DIFFERENCE -0.2; LYMPHOCYTES % (AUTO) 43.1 % (13-45); MEAN CORPUSCULAR HEMOGLOBIN 25.7 pg (27.0-33.4); MEAN CORPUSCULAR HGB CONC 33.2 g/dL (32.0-36.0); MEAN CORPUSCULAR VOLUME 77 fl (80-97); MONOCYTES % (AUTO) 9.4 % (3-13); RED BLOOD COUNT 5.61 10^6/uL (4.35-5.55); RED CELL DISTRIBUTION WIDTH 17.4 % (11.5-14.0); SEGMENTED NEUTROPHILS % (AUTO) 43.6 % (42-78); WHITE BLOOD COUNT 4.6 10^3/uL (4.0-10.5)
[2016-10-17 06:53] LABS: ANION GAP 9 (5-19); BLOOD UREA NITROGEN 14 mg/dL (7-20); CALCIUM 9.4 mg/dL (8.4-10.2); CARBON DIOXIDE 29 mmol/L (22-30); CHLORIDE 103 mmol/L (98-107); CREATININE RESULT 1.02 mg/dL (0.52-1.25); GLUCOSE 99 mg/dL (75-110); SODIUM 140.9 mmol/L (137-145)
[2016-10-17] MEDS ORDERED: SITAGLIPTIN PHOSPHATE 50 MG TABLET PO SCH (10:00)
[2016-10-17] MEDS: GABAPENTIN 100 MG CAPSULE PO SCH (11:06)
[2016-10-17] MEDS: FLUTICASONE NASAL SPRAY 50 MCG/SPRY 120 SPRAY/16 GM NASL SCH (11:06)
[2016-10-17] MEDS: DOCUSATE SODIUM 100 MG CAPSULE PO SCH (11:07)
[2016-10-17] MEDS: VALSARTAN 160 MG TABLET PO SCH (11:07)
[2016-10-17] MEDS: ASPIRIN 325 MG TABLET PO SCH (11:07)
[2016-10-17] MEDS: TAMSULOSIN HCL 0.4 MG CAP.SR.24H PO SCH (11:07)
[2016-10-17] MEDS: AMLODIPINE BESYLATE 5 MG TABLET PO SCH (11:07)
[2016-10-17] MEDS: LANSOPRAZOLE 15 MG TAB.RAP.DR PO SCH (11:08)
[2016-10-17] MEDS: EZETIMIBE 10 MG TABLET PO SCH (11:08)
[2016-10-17] MEDS: ATORVASTATIN CALCIUM 10 MG TABLET PO SCH (11:08)
[2016-10-17] MEDS: ENOXAPARIN SODIUM INJ 40 MG/0.4 ML DISP.SYRIN SUBCUT SCH (11:08)
[2016-10-17] MEDS: FUROSEMIDE 20 MG TABLET PO SCH (11:08)
[2016-10-17 11:36] VITALS: BP 171/74
--- NOTE | 2016-10-17 13:43 | PDOC DISCHARGE SUMMARY ---
General - Admit/Disc Date/PCP Admission Date/Primary Care Provider: 10/14/16 15:07 MARYLIN KRAUSE MD Discharge Date: 10/17/16 - Discharge Diagnosis (1) Hypertension Is this a current diagnosis for this admission?: YesSummary: Add the hydralazine 25 mg p.o. q. 8 and continues to current other medications and as per discussed with Dr. Loco keep a blood pressure is 150 range (2) Dizziness Is this a current diagnosis for this admission?: YesSummary: Most likely a from the vertigo patient's MRI was negative and all cardiac workup is negative to (3) Benign positional vertigo Is this a current diagnosis for this admission?: YesSummary: Continues to meclizine and make an appointment to see the ENT as outpatients (4) Carotid artery disease Is this a current diagnosis for this admission?: YesSummary: Patient already seen by the vascular surgeon and a full blockage on the right- sided and no further interventions require (5) Orthostatic hypotension Is this a current diagnosis for this admission?: YesSummary: Currently stable discussed with the patient and the regarding the fall precautions and use the walker and a wheelchair (6) Type 2 diabetes mellitus Is this a current diagnosis for this admission?: YesSummary: Currently stable with the continuous current medications (7) Chronic kidney disease Is this a current diagnosis for this admission?: YesSummary: Patient's last creatinine was all stable - Additional Information Discharge Diet: Diabetic Discharge Activity: Activity As Tolerated Home Medications: Amlodipine Besylate [Norvasc 5 mg Tablet] 5 mg PO DAILY 10/14/16 Aspirin [Aspirin 325 mg Tablet] 325 mg PO DAILY 10/14/16 Atorvastatin Calcium [Lipitor 10 mg Tablet] 10 mg PO DAILY 10/14/16 Ergocalciferol (Vitamin D2) [Vitamin D2] 50,000 unit PO MO@1000 10/14/16 Ezetimibe [Zetia 10 mg Tablet] 10 mg PO DAILY 10/14/16 Fluticasone Propionate [Flonase Nasal Howe 50 Mcg/Howe 16 gm] 1 spray NASL DAILY 10/14/16 Furosemide [Lasix] 20 mg PO BID 10/14/16 Gabapentin [Neurontin 100 mg Capsule] 100 mg PO BID 10/14/16 Insulin Glargine,Hum.rec.anlog [Lantus Solostar] 50 unit SQ QHS 10/14/16 Linagliptin [Tradjenta] 5 mg PO DAILY 10/14/16 Meclizine HCl 25 mg PO Q8HP PRN 10/14/16 Omeprazole Magnesium [Prilosec Otc] 20 mg PO DAILY 10/14/16 Tamsulosin HCl [Flomax] 0.4 mg PO DAILY 10/14/16 Valsartan [Diovan 160 mg Tablet] 160 mg PO Q12 10/14/16 Hydralazine HCl [Apresoline 25 mg Tablet] 25 mg PO Q8 #90 tablet 10/17/16 Meclizine HCl [Antivert 12.5 mg Tablet] 12.5 mg PO Q8HP PRN #90 tablet 10/17/16 History of Present Illness History of Present Illness: JAYCOB GOODMAN is a 71 year old male This is a 71-year-old male with a significant medical problems including the history of the hypertensions chronic kidney disease hyperlipidemia and carotid artery disease and history of the stroke went to the emergency department yesterday with a complaining of feeling dizzy and unable to walk and patient initial workup including the CT of the head and MRI of the head and all blood work was negativePatient was discharged but patient's today's noticed that he is still unable to walk because every time he tried to stand up he started feeling dizzy and wobbly patient's also blood pressure was running highPatient' s was admitting in the hospital several months back for the same problems and very extensive workup done including the cardiac workup done and was all stable patient was bradycardic and patient's metoprolol was stopped and patient was finding orthostatic hypotension's and the patient's nifedipine was also stop and put a myoglobin at the time. Patient's denied any chest pain denied any shortness of the breath. Patient's also eating a lot of salty foods since last several days and they may be contributed patient's elevated the blood pressures but the patient's age and with the symptoms decided to admit in the hospital for further evaluation and the treatmentsFamily is also present in the office and angry about that Hospital Course Hospital Course: This is a 71-year-old male came to the my office with the complaining of elevated blood pressures in the dizziness and the vertigo symptoms. Patient's was 1 day before in the ER and a CT head and MRI of the head was all negative and patient's all blood work was negative. Patient have a history of the carotid artery disease and see the vascular surgery for that and no need for further interventions. Patient's was admitted in the hospital for further evaluation and treatment and Dr. Anders Loco was consulted. Patient have ultrasound of the kidney was done and was negative for any renal artery stenosis. Patient's was put in the meclizine and patients remained stable. Physical therapy was also done Patient otherwise remained stable symptoms all improved and very extensive discussions with the patient and the that patients have pretty much all workup done patient have ultrasound for the lower extremity was done was negative for any DVT patients also have x-ray of the C-spine which is probably DJD and the patient's needs to follow as outpatients with the ENT Physical Exam Vital Signs: Temp Pulse Resp BP Pulse Ox 98.1 F 56 L 20 171/74 H 100 10/17/16 11:15 10/17/16 11:15 10/17/16 11:15 10/17/16 11:15 10/17/16 11:15 Intake & Output 10/16/16 10/17/16 10/18/16 06:59 06:59 06:59 Intake Total 600 1250 Balance 600 1250 Weight 113.5 kg General appearance: PRESENT: no acute distress, well-developed, well-nourished Head exam: PRESENT: atraumatic, normocephalic Eye exam: PRESENT: conjunctiva pink, EOMI, PERRLA. ABSENT: scleral icterus Ear exam: PRESENT: normal external ear exam Mouth exam: PRESENT: moist, tongue midline Neck exam: PRESENT: full ROM. ABSENT: carotid bruit, JVD, lymphadenopathy, thyromegaly Respiratory exam: PRESENT: clear to auscultation yadiel Cardiovascular exam: PRESENT: RRR. ABSENT: diastolic murmur, rubs, systolic murmur Pulses: PRESENT: normal dorsalis pedis pul, +2 pedal pulses bilateral Vascular exam: PRESENT: normal capillary refill GI/Abdominal exam: PRESENT: normal bowel sounds, soft. ABSENT: distended, guarding, mass, organolmegaly, rebound, tenderness Rectal exam: PRESENT: deferred Neurological exam: PRESENT: alert, awake, oriented to person, oriented to place , oriented to time, oriented to situation, CN II-XII grossly intact. ABSENT: motor sensory deficit Psychiatric exam: PRESENT: appropriate affect, normal mood. ABSENT: homicidal ideation, suicidal ideation Skin exam: PRESENT: dry, intact, warm. ABSENT: cyanosis, rash Results Laboratory Results: 10/17/16 05:51 10/17/16 05:51 10/17/16 10/17/16 05:51 05:51 WBC 4.6 RBC 5.61 H Hgb 14.4 Hct 43.4 MCV 77 L MCH 25.7 L MCHC 33.2 RDW 17.4 H Plt Count 177 Seg Neutrophils % 43.6 Lymphocytes % 43.1 Monocytes % 9.4 Eosinophils % 2.8 Basophils % 1.1 Absolute Neutrophils 2.0 Absolute Lymphocytes 2.0 Absolute Monocytes 0.4 Absolute Eosinophils 0.1 Absolute Basophils 0.0 Sodium 140.9 Potassium 4.0 Chloride 103 Carbon Dioxide 29 Anion Gap 9 BUN 14 Creatinine 1.02 Est GFR ( Amer) > 60 Est GFR (Non-Af Amer) > 60 Glucose 99 Calcium 9.4 10/14/16 10/14/16 10/15/16 16:15 16:15 00:03 Creatine Kinase 202 H 176 H CK-MB (CK-2) 2.56 Troponin I < 0.012 10/15/16 10/15/16 10/15/16 00:03 06:45 06:45 Creatine Kinase 169 CK-MB (CK-2) 2.45 2.34 Troponin I < 0.012 < 0.012 Impressions: Cervical Spine X-Ray 10/14/16 00:00 IMPRESSION: CHRONIC DEGENERATIVE CHANGES. NO ACUTE FINDINGS. Vascular Ultrasound 10/14/16 00:00 IMPRESSION: NO DOPPLER EVIDENCE OF HEMODYNAMICALLY SIGNIFICANT RENAL ARTERY STENOSIS. Plan Time Spent: Greater than 30 Minutes - Continues to current medication as above following a one-week in office follow outpatients ENT and a fall precautions and a use a walker and a wheelchair and in no salt in the diet. Discussed with the patient and the regarding the patient's current condition and follow-up
[2016-10-21] MEDS ORDERED: ERGOCALCIFEROL (VITAMIN D2) 50000 UNIT (1.25 MG) CAPSULE PO SCH (10:00)
== END 2016-10-17 12:00 | disposition home health service (06) | DRG 684 ==
LOC: 4S 15:07
PROVIDERS: ADMIT Family Medicine; ATTEND Family Medicine
DX: I12.9 Hypertensive chronic kidney disease with stage 1 through stage 4 chronic kidney disease, or unspecified chronic kidney disease (principal); H81.10 Benign paroxysmal vertigo, unspecified ear; I25.10 Atherosclerotic heart disease of native coronary artery without angina pectoris; I95.1 Orthostatic hypotension; N18.3 Chronic kidney disease, stage 3 (moderate); E78.5 Hyperlipidemia, unspecified; N40.0 Benign prostatic hyperplasia without lower urinary tract symptoms; K21.9 Gastro-esophageal reflux disease without esophagitis; I77.9 Disorder of arteries and arterioles, unspecified; M19.90 Unspecified osteoarthritis, unspecified site; Z79.82 Long term (current) use of aspirin; Z79.4 Long term (current) use of insulin; Z79.899 Other long term (current) drug therapy; Z86.73 Personal history of transient ischemic attack (TIA), and cerebral infarction without residual deficits; Z99.3 Dependence on wheelchair
CPT/HCPCS: 36415; 70450; 70551; 72040; 80048; 80053; 81001; 82550; 82553; 82962; 83735; 84484; 85025; 85027; 87086; 93005; 93010; 93970; 93976; G8978-GP; G8979-GP; G8980-GP; J1650; J1815; J3490

== ENCOUNTER → 2016-10-24 | Outpatient (CLI) | payer MEDICARE | LOC: RAD 11:40 | PROVIDERS: ATTEND Family Medicine | DX: H81.10 Benign paroxysmal vertigo, unspecified ear (principal) ==

== ENCOUNTER 2017-11-11 16:52 | Emergency (ER) | payer MEDICARE ==
--- NOTE | 2017-11-11 17:16 | ER Document Report ---
ED Respiratory Problem - General Chief Complaint: Shortness Of Breath Stated Complaint: DIZZINESS Time Seen by Provider: 11/11/17 17:10 Notes: The patient is a 72-year-old male, past medical history hypertension, CKD, BPPV , presents after he accidentally took his old and new diuretic pills last night and began to feel foggy in his head. He was having mild low back pain that has resolved upon arrival to the ER. 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 He urinated a lot last night and was not having any dysuria or hematuria. He is also having mild shortness of breath that also resolved. He denies chest pain, blurry vision, headache, focal weakness, numbness or increased swelling. TRAVEL OUTSIDE OF THE [place] IN LAST 30 DAYS: No - Related Data Allergies/Adverse Reactions: No Known Allergies Allergy (Verified 05/22/16 19:51) Past Medical History - General Information source: Patient - Social History Smoking Status: Unknown if Ever Smoked Family History: Reviewed & Not Pertinent - Past Medical History Cardiac Medical History: Reports: Hx Hypercholesterolemia - DX FIVE YEARS AGO, Hx Hypertension - DX 20 YEARS AGO Pulmonary Medical History: Reports: Hx Pneumonia - TWO MONTHS AGO Denies: Hx Tuberculosis Endocrine Medical History: Reports: Hx Diabetes Mellitus Type 2 - DX 12 YEARS AGO Renal/ Medical History: Reports: Hx Benign Prostatic Hyperplasia GI Medical History: Reports: Hx Gastroesophageal Reflux Disease Musculoskeltal Medical History: Reports Hx Arthritis Psychiatric Medical History: Denies: Hx Depression Past Surgical History: Reports: Hx Orthopedic Surgery - Rotator cuff surgery both shoulders. Neck surgery after a fracture.. Denies: Hx Adenoidectomy - Immunizations Hx Diphtheria, Pertussis, Tetanus Vaccination: Yes Hx Pneumococcal Vaccination: 07/21/11 Review of Systems - Review of Systems Notes: REVIEW OF SYSTEMS: CONSTITUTIONAL: -fevers, -chills EENT: -eye pain, -difficulty swallowing, -nasal congestion CARDIOVASCULAR: -chest pain, -syncope. RESPIRATORY: -cough, +SOB GASTROINTESTINAL: -abdominal pain, -nausea, -vomiting, -diarrhea GENITOURINARY: -dysuria, -hematuria MUSCULOSKELETAL: +back pain, -neck pain SKIN: -rash or skin lesions. HEMATOLOGIC: -easy bruising or bleeding. LYMPHATIC: -swollen, enlarged glands. NEUROLOGICAL: -altered mental status or loss of consciousness, -headache, - neurologic symptoms PSYCHIATRIC: -anxiety, -depression. ALL OTHER SYSTEMS REVIEWED AND NEGATIVE. Physical Exam - Vital signs Vitals: BP 168/86 H 11/11/17 16:58 - Notes Notes: PHYSICAL EXAMINATION: GENERAL: Well-appearing, well-nourished and in no acute distress. HEAD: Atraumatic, normocephalic. EYES: Pupils equal round and reactive to light, extraocular movements intact, sclera anicteric, conjunctiva are normal. ENT: nares patent, oropharynx clear without exudates. Moist mucous membranes. NECK: Normal range of motion, supple without lymphadenopathy LUNGS: Breath sounds clear to auscultation bilaterally and equal. No wheezes rales or rhonchi. HEART: Regular rate and rhythm without murmurs ABDOMEN: Soft, nontender, normoactive bowel sounds. No guarding, no rebound. No masses appreciated. EXTREMITIES: 1+ pitting edema (better than normal, according to family and patient). Normal range of motion. No cyanosis. NEUROLOGICAL: Cranial nerves grossly intact. Normal speech, normal gait. Normal sensory and motor exams. PSYCH: Normal mood, normal affect. SKIN: Warm, Dry, normal turgor, no rashes or lesions noted. Course - Re-evaluation Re-evalutation: Patient appears well and has no complaints at this time on my evaluation in the ER. Chest x-ray is clear and he is not in respiratory distress. His blood work is remarkable for MATTEO, with doubling of his BUN and creatinine. He did start a new thiazide diuretic yesterday prescribed by his Echo Vascular Technologist, Dr. Loco. 11/11/17 17:[address] Loco and and he recommends obtaining ultrasound of kidneys and bladder to rule out obstruction and then following-up with him in 1 week. He is asking if we could provide him a lab slip for outpatient labs before his appointment next week. Patient just urinated without any issues. Ultrasound shows no evidence of obstruction and questionable bladder wall thickness. Family provided a copy of the ultrasound and told that it does need to be repeated due to the remote possibility of bladder cancer. Patient provided with an outpatient lab slip and instructed to call Dr. Loco in the morning for an appointment next week. - Vital Signs Vital signs: Temp Pulse Resp BP Pulse Ox 19 169/87 H 97 11/11/17 18:01 11/11/17 18:00 11/11/17 18:01 - Laboratory Result Diagrams: 11/11/17 17:00 11/11/17 17:00 Laboratory results interpreted by me: 11/11/17 11/11/17 11/11/17 17:00 17:00 17:50 RDW 16.0 H Chloride 97 L Carbon Dioxide 31 H BUN 27 H Creatinine 1.83 H Est GFR ( Amer) 44 L Est GFR (Non-Af Amer) 36 L Glucose 217 H Direct Bilirubin 0.5 H Creatine Kinase 240 H Urine Glucose (UA) 50 H - Diagnostic Test Radiology reviewed: Image reviewed, Reports reviewed Radiology results interpreted by me: CXR: NAD Renal and bladder US: Normal, questionable bladder wall thickness - EKG Interpretation by Me EKG shows normal: Sinus rhythm, [place], Intervals, QRS Complexes, ST-T Waves Discharge - Discharge Clinical Impression: Shortness of breath, MATTEO (acute kidney injury) Condition: Stable Disposition: HOME, SELF-CARE Additional Instructions: You must follow-up with Dr. Loco next week to have your kidney function test rechecked. Take a lab slip to the lab before your appointment. Call tomorrow to schedule the appointment. Stop the old water pill and begin the new diuretic as instructed by Dr. Loco. Return to the ER if you have worsening symptoms or any other concerns. SHORTNESS OF BREATH OR DYSPNEA: You were evaluated for shortness of breath, or dyspnea. Dyspnea has many causes, and some are more serious than others. Sometimes it's impossible to diagnose the cause of dyspnea with the tests that are available on an emergency basis. Based on our evaluation today, you do not need hospitalization now. We found no evidence of pneumonia, collapsed lung, blood clots in the lung, tumors , or heart failure. Causes of non-specific dyspnea can include asthma or bronchospasm, hyperventilation, emotional distress, heart disease, emphysema, fibrosis of the lung, and stiffness of the chest wall. In healthy individuals with a single episode, it's sometimes reasonable to do nothing but wait to see if the problem occurs again. Additional tests used to evaluate dyspnea can include cardiac stress testing, echocardiography, pulmonary function testing, CAT scan of the chest, bronchoscopy or pulmonary biopsy. Return if shortness of breath persists or worsens, or if you develop chest pain, fever, cough, confusion, or fainting. NORMAL EXAM AND WORKUP: At this time, your examination and workup show no significant abnormality. No significant abnormal physical findings were noted. All laboratory, EKG, and imaging (x-ray, CT scans, ultrasound) studies that were ordered show no significant abnormality. Although your examination and all studies that were ordered showed no significant abnormal finding, there are no examinations and no studies that are 100% accurate. There is always the possibility that some abnormality could exist and not be detected with physical examination or within the limits and capabilities of laboratory and other studies. You should return or follow up as you were instructed on your visit today for further evaluation if your symptoms do not resolve. FOLLOW-UP CARE: If you have been referred to a physician for follow-up care, call the physician s office for an appointment as you were instructed or within the next two days. If you experience worsening or a significant change in your symptoms, notify the physician immediately or return to the Emergency Department at any time for re-evaluation. Forms: Elevated Blood Pressure Referrals: MARYLIN KRAUSE MD [Primary Care Provider] - Follow up as needed
[2017-11-11 17:31] LABS: ABSOLUTE BASOPHILS # (AUTO) 0.1 10^3/uL (0.0-0.2); ABSOLUTE EOSINOPHILS # (AUTO) 0.1 10^3/uL (0.0-0.6); ABSOLUTE LYMPHOCYTES (AUTO) 2.1 10^3/uL (0.5-4.7); ABSOLUTE MONOCYTES (AUTO) 0.7 10^3/uL (0.1-1.4); ABSOLUTE NEUT (AUTO) 4.5 10^3/uL (1.7-8.2); BASOPHILS % (AUTO) 0.9 % (0-2); EOSINOPHILS % (AUTO) 1.5 % (0-6); HEMATOCRIT 44.7 % (37.9-51.0); HEMOGLOBIN 14.9 g/dL (13.5-17.0); LYMPHOCYTES % (AUTO) 27.9 % (13-45); MEAN CORPUSCULAR HGB CONC 33.3 g/dL (32.0-36.0); MEAN CORPUSCULAR VOLUME 81 fl (80-97); MONOCYTES % (AUTO) 9.8 % (3-13); PLATELET COUNT 204 10^3/uL (150-450); SEGMENTED NEUTROPHILS % (AUTO) 59.9 % (42-78); TOTAL CELLS COUNTED % (AUTO) 100 %; WHITE BLOOD COUNT 7.4 10^3/uL (4.0-10.5)
--- NOTE | 2017-11-11 17:31 | RADIOLOGY REPORT (SQ) ---
EXAM DESCRIPTION: CHEST SINGLE VIEW COMPLETED DATE/TIME: 11/11/2017 5:23 pm REASON FOR STUDY: SOB COMPARISON: 10/31/2015 EXAM PARAMETERS: NUMBER OF VIEWS: One view. TECHNIQUE: Single frontal radiographic view of the chest acquired. RADIATION DOSE: NA LIMITATIONS: None. FINDINGS: LUNGS AND PLEURA: No opacities, masses or pneumothorax. No pleural effusion. MEDIASTINUM AND HILAR STRUCTURES: No masses. Contour normal. HEART AND VASCULAR STRUCTURES: Heart normal in size. Normal vasculature. BONES: No acute findings. HARDWARE: None in the chest. OTHER: No other significant finding. IMPRESSION: NO ACUTE RADIOGRAPHIC FINDING IN THE CHEST. TECHNICAL DOCUMENTATION: JOB ID: [id number] [employer]- All Rights Reserved Reading location - IP/workstation name: [email or web address]
[2017-11-11 17:43] LABS: ALANINE AMINOTRANSFERASE 46 U/L (21-72); ALBUMIN 3.7 g/dL (3.5-5.0); ALKALINE PHOSPHATASE 104 U/L (38-126); ANION GAP 13 (5-19); ASPARTATE AMINO TRANSFERASE 35 U/L (17-59); BILIRUBIN,DIRECT 0.5 mg/dL (0.0-0.4); BILIRUBIN,TOTAL 0.6 mg/dL (0.2-1.3); BLOOD UREA NITROGEN 27 mg/dL (7-20); CALCIUM 9.3 mg/dL (8.4-10.2); CARBON DIOXIDE 31 mmol/L (22-30); CHLORIDE 97 mmol/L (98-107); CREATINE KINASE 240 U/L (55-170); GLUCOSE 217 mg/dL (75-110); POTASSIUM 4.1 mmol/L (3.6-5.0); SODIUM 140.8 mmol/L (137-145); TOTAL PROTEIN 6.8 g/dL (6.3-8.2)
[2017-11-11 17:52] LABS: TROPONIN I 0.016 ng/mL
[2017-11-11 18:21] LABS: APPEARANCE,URINE CLEAR; BILIRUBIN,URINE NEGATIVE (NEGATIVE); COLOR,URINE YELLOW; GLUCOSE, URINE 50 mg/dL (NEGATIVE); KETONES,URINE NEGATIVE (NEGATIVE); LEUKOCYTE ESTERASE,URINE NEGATIVE (NEGATIVE); NITRITE,URINE NEGATIVE (NEGATIVE); PROTEIN,URINE NEGATIVE (NEGATIVE); URINE SPECIFIC GRAVITY 1.011; UROBILINOGEN,URINE NEGATIVE mg/dL (<2.0)
--- NOTE | 2017-11-11 18:53 | EKG REPORT ---
SEVERITY:- ABNORMAL ECG - SINUS RHYTHM ABNORMAL T, CONSIDER ISCHEMIA, LATERAL LEADS BORDERLINE PROLONGED QT INTERVAL : Confirmed by: Austin Fung MD 11-Nov-2017 18:53:21
--- NOTE | 2017-11-11 19:13 | RADIOLOGY REPORT (SQ) ---
EXAM DESCRIPTION: U/S RETROPERITON (RENAL/AORTA) COMPLETED DATE/TIME: 11/11/2017 7:05 pm REASON FOR STUDY: MATTEO, renal or bladder obstruction? COMPARISON: 05/06/2014 TECHNIQUE: Dynamic and static grayscale images acquired of the kidneys and bladder and recorded on P ACS. Additional selected color Doppler and spectral images recorded. LIMITATIONS: None. FINDINGS: RIGHT KIDNEY: Normal size, 11.2 cm. Normal echogenicity. No solid or suspicious masses. N o hydronephrosis. No calcifications. LEFT KIDNEY: Normal size, 11.8 cm. Normal echogenicity. No solid or suspicious masses. No hydronephr osis. No calcifications. BLADDER: Questionable thickening of the bladder wall that measures 6 mm. The bladder is not fully di stended, however. Ureteral jets were not seen. OTHER FINDINGS: No other significant finding. IMPRESSION: The study is essentially normal. There is questionable bladder wall thickening as discu ssed. TECHNICAL DOCUMENTATION: JOB ID: [id number] [employer]- All Rights Reserved Reading location - IP/workstation name: [email or web address]
[2017-11-11 20:08] VITALS: BP 146/68
== END 2017-11-11 20:04 | disposition home or self-care (01) ==
LOC: ER 16:52
DX: R42 Dizziness and giddiness (principal); N17.9 Acute kidney failure, unspecified; R06.02 Shortness of breath; E11.9 Type 2 diabetes mellitus without complications
CPT/HCPCS: 36415; 71045; 76770; 80053; 81001; 82550; 83880; 84484; 85025; 93005; 93010; 99285

== ENCOUNTER → 2017-11-26 | Outpatient (CLI) | payer MEDICARE ==
--- NOTE | 2017-11-26 15:08 | RADIOLOGY REPORT (SQ) ---
EXAM DESCRIPTION: MRI HEAD WITHOUT COMPLETED DATE/TIME: 11/26/2017 2:52 pm REASON FOR STUDY: I65.29 OCCLUSION AND STENOSIS OF UNSPECIFIED CAROTID ARTERY I65.29 OCCLUSION AND STENOSIS OF UNSPECIFIED CAROTID ARTERY COMPARISON: 10/13/2016 TECHNIQUE: Multiplanar imaging includes non-contrasted T1, T2, FLAIR, and diffusion with ADC map seq uences. Images stored on PACS. LIMITATIONS: None. FINDINGS: ANATOMY: No anomalies. Normal vascular flow voids. Pituitary fossa normal. CSF SPACES: Atrophy induced prominence of ventricles and CSF spaces. CEREBRUM: High signal intensity lesions scattered throughout the white matter on FLAIR imaging with d istribution suggesting micro-vascular ischemic changes. No evidence of hemorrhage, mass, or extraaxi al fluid collection. POSTERIOR FOSSA: No signal alteration. No hemorrhage. No edema, masses or mass effect. Internal verónica tory canals, cerebello-pontine angles, mastoids normal. DIFFUSION IMAGING: Negative for acute or sub-acute infarction. ORBITS: No masses. Globes normal. PARANASAL SINUSES: No fluid levels. Mucosa normal. OTHER: No other significant finding. IMPRESSION: ATROPHY AND CHRONIC MICRO-VASCULAR ISCHEMIC CHANGES. OTHERWISE NORMAL MRI OF THE BRAIN W ITHOUT INTRAVENOUS GADOLINIUM CONTRAST. EVIDENCE OF ACUTE STROKE: NO. TECHNICAL DOCUMENTATION: JOB ID: [id number] [employer]- All Rights Reserved Reading location - IP/workstation name: [email or web address]
--- NOTE | 2017-11-26 16:10 | RADIOLOGY REPORT (SQ) ---
EXAM DESCRIPTION: CAROTID DOPPLER COMPLETED DATE/TIME: 11/26/2017 3:59 pm REASON FOR STUDY: STENOSIS I65.29 OCCLUSION AND STENOSIS OF UNSPECIFIED CAROTID ARTERY COMPARISON: 12/15/2013. TECHNIQUE: Grayscale ultrasound, Doppler velocity and spectra, and color Doppler images acquired of the extra-cranial carotid and vertebral arteries. Images stored on PACS. LIMITATIONS: None. FINDINGS: RIGHT CAROTID CCA Velocities: Within normal limits. ICA is occluded. LEFT CAROTID CCA Velocities: Within normal limits. ICA Velocities Peak systolic 0.55 m/s. End diastolic 0.18 m/s. Proximal ICA/CCA peak systolic ratio 0.8. Spectra normal. No significant plaque. VERTEBRAL ARTERIES: Antegrade flow. Normal waveforms. SUBCLAVIAN ARTERIES: Not imaged. OTHER: No other significant finding. IMPRESSION: Occluded right internal carotid artery. COMMENT: Quality ID #195: Velocity criteria are extrapolated from the diameter data as defined by t he Society of Radiologists in Ultrasound Consensus Conference. Radiology 2003: 229; 340-346. TECHNICAL DOCUMENTATION: JOB ID: [id number] [employer]- All Rights Reserved Reading location - IP/workstation name: [facility]
== END ==
LOC: SP 13:57
PROVIDERS: ATTEND Family Medicine
DX: I65.21 Occlusion and stenosis of right carotid artery (principal)
CPT/HCPCS: 70551; 93880

== ENCOUNTER → 2017-12-10 | Outpatient (CLI) | payer MEDICARE ==
--- NOTE | 2017-12-10 09:45 | RADIOLOGY REPORT (SQ) ---
EXAM DESCRIPTION: KNEE LEFT 2 VIEWS COMPLETED DATE/TIME: 12/10/2017 9:28 am REASON FOR STUDY: PAIN IN LEFT KNEE/ LT HIP M25.562 PAIN IN LEFT KNEE M25.552 PAIN IN LEFT HIP COMPARISON: None. NUMBER OF VIEWS: Four views. TECHNIQUE: AP and lateral radiographic images acquired of the left knee. LIMITATIONS: None. FINDINGS: MINERALIZATION: Normal. BONES: No acute fracture or dislocation. No worrisome bone lesions. JOINT: Arthritic change with mild to moderate narrowing medial joint compartment. SOFT TISSUES: No metallic foreign bodies. OTHER: No other significant finding. IMPRESSION: No acute fractures. Arthritic changes seen with mild to moderate narrowing medial joint compartment. TECHNICAL DOCUMENTATION: JOB ID: [id number] [employer]- All Rights Reserved Reading location - IP/workstation name: [email or web address]
--- NOTE | 2017-12-10 09:47 | RADIOLOGY REPORT (SQ) ---
EXAM DESCRIPTION: HIP LEFT AP/LATERAL COMPLETED DATE/TIME: 12/10/2017 9:28 am REASON FOR STUDY: PAIN IN LEFT KNEE/ LT HIP M25.562 PAIN IN LEFT KNEE M25.552 PAIN IN LEFT HIP COMPARISON: None. NUMBER OF VIEWS: Three views TECHNIQUE: AP pelvis and additional frog-leg view of the left hip. LIMITATIONS: None. FINDINGS: MINERALIZATION: Normal. LEFT HIP: No fracture or dislocation. No worrisome bone lesions. RIGHT HIP: No fracture or dislocation. No worrisome bone lesions. PUBIS AND ISCHIUM: No fracture. PELVIS: No fracture. SACRUM: No fracture or dislocation. No worrisome bone lesions. LOWER LUMBAR SPINE: Arthritic changes noted. SOFT TISSUES: No findings. OTHER: If an occult fracture suspected clinically, consider followup imaging. IMPRESSION: Nothing acute. TECHNICAL DOCUMENTATION: JOB ID: [id number] [employer] All Rights Reserved Reading location - IP/workstation name: [email or web address]
== END ==
LOC: OD 08:57
PROVIDERS: ATTEND Family Medicine
DX: M25.562 Pain in left knee (principal); M25.552 Pain in left hip

== ENCOUNTER → 2018-04-23 | Outpatient (CLI) | payer MEDICARE ==
--- NOTE | 2018-04-23 11:27 | RADIOLOGY REPORT (SQ) ---
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 TECHNIQUE: Multiplanar imaging of the left forefoot and toes to include T1-weighted, postcontrast T1 -weighted, and T2-weighted images. CONTRAST TYPE AND DOSE: 20 mL Dotarem. RENAL FUNCTION: GFR 42 LIMITATIONS: None. FINDINGS: BONE MARROW: Abnormal marrow signal and enhancement of the 5th toe phalanges at the interp halangeal joint. Surrounding diffuse contrast enhancement adjacent 5th toe soft tissues from celluli tis. No 5th toe soft tissue abscess is identified. No other marrow signal abnormalities or abnormal marrow enhancement in the forefoot. SOFT TISSUES: There is abnormal soft tissue contrast enhancement at the 5th toe interphalangeal joint from soft tissue cellulitis. OTHER: No other significant finding. IMPRESSION: Osteomyelitis left 5th toe proximal and distal phalanges adjacent to the 5th toe interph alangeal joint. Adjacent soft tissue contrast enhancement without abscess from cellulitis TECHNICAL DOCUMENTATION: JOB ID: [id number] [employer]- All Rights Reserved Reading location - IP/workstation name: [facility]-RR
== END ==
LOC: RAD 09:28
PROVIDERS: ATTEND Podiatrist Foot & Ankle Surgery
DX: M86.372 Chronic multifocal osteomyelitis, left ankle and foot (principal)
CPT/HCPCS: 82565; 73720; A9576

== ENCOUNTER → 2018-11-12 | Outpatient (CLI) | payer MEDICARE ==
--- NOTE | 2018-11-12 10:52 | RADIOLOGY REPORT (SQ) ---
EXAM DESCRIPTION: CT SOFT TISSUE NECK WITHOUT COMPLETED DATE/TIME: 11/12/2018 8:13 am REASON FOR STUDY: LOCALIZED SWELLING, MASS AND LUMP, NECK R22.1 LOCALIZED SWELLING, MASS AND LUMP, NECK COMPARISON: Carotid Doppler 12/15/2013 MRA exam carotid bifurcations 12/29/2013 Cervical spine three views 10/14/2016 MRI cervical spine 10/24/2016 TECHNIQUE: Noncontrast scanning from skull base through lung apices with review of bone, soft tissue and lung windows. Reconstructed coronal and sagittal MPR images reviewed. All images stored on PAC S. All CT scanners at this facility use dose modulation, iterative reconstruction, and/or weight based d osing when appropriate to reduce radiation dose to as low as reasonably achievable (ALARA). [facility]: Dose Right [facility]: CareDose [facility]: Dose Right [facility]: Teradose 4D [facility]: Edgeio RADIATION DOSE: 23.8 mGy. LIMITATIONS: None. FINDINGS: SKULL BASE: Noncontrast imaging of the inferior brain parenchyma in the field of view unre markable MAJOR SALIVARY GLANDS: No solid or cystic masses. No inflammatory changes. LYMPHADENOPATHY: No adenopathy. MUCOSAL MASSES OR ASYMMETRY: No mucosal masses or asymmetry. LARYNX/CORDS: No abnormal findings. LUNG APICES: Clear. BONES: Post fusion at C6-7 without hardware. Old nuchal ligament calcifications at C5 THYROID: 1.5 cm nodule inferior aspect right lobe thyroid. Correlation with dedicated thyroid ultras ound recommended PARANASAL SINUSES: Clear. OTHER: Post bilateral cataract surgery IMPRESSION: Incidental finding of a 1.5 cm nodule right lobe thyroid for which dedicated thyroid ult rasound is recommended TECHNICAL DOCUMENTATION: JOB ID: [id number] Quality ID # [id number]: Final reports with documentation of one or more dose reduction techniques (e.g., Au tomated exposure control, adjustment of the mA and/or kV according to patient size, use of iterative reconstruction technique) 2010 [employer]- All Rights Reserved Reading location - IP/workstation name: [email or web address]
== END ==
LOC: RAD 07:52
PROVIDERS: ATTEND Family Medicine
DX: R22.1 Localized swelling, mass and lump, neck (principal)
CPT/HCPCS: 70490

== ENCOUNTER → 2018-12-01 | Outpatient (CLI) | payer MEDICARE ==
--- NOTE | 2018-12-01 11:11 | RADIOLOGY REPORT (SQ) ---
EXAM DESCRIPTION: SHOULDER RIGHT 2 OR MORE VIEWS COMPLETED DATE/TIME: 12/01/2018 10:02 am REASON FOR STUDY: RT ANTERIOR SHOULDER PAIN M25.511 PAIN IN RIGHT SHOULDER COMPARISON: None. NUMBER OF VIEWS: Three views. TECHNIQUE: Internal rotation, external rotation, and Y view images acquired of the right shoulder. LIMITATIONS: None. FINDINGS: MINERALIZATION: Normal. BONES: Postsurgical changes. No acute fracture or dislocation. JOINTS: Mild acromioclavicular arthrosis. No dislocation. VISUALIZED LUNGS AND RIBS: No pneumothorax. No rib fracture. SOFT TISSUES: No radiopaque foreign body. OTHER: No other significant finding. IMPRESSION: 1. No acute osseous findings. Post surgical changes. 2. Mild acromioclavicular arthrosis. TECHNICAL DOCUMENTATION: JOB ID: [id number] [employer]- All Rights Reserved Reading location - IP/workstation name: [email or web address]
== END ==
LOC: OD 09:43
PROVIDERS: ATTEND Family Medicine
DX: M25.511 Pain in right shoulder (principal)

== ENCOUNTER → 2018-12-29 | Outpatient (CLI) | payer MEDICARE ==
--- NOTE | 2018-12-29 14:52 | RADIOLOGY REPORT (SQ) ---
EXAM DESCRIPTION: CT ABD/PELVIS ORAL ONLY COMPLETED DATE/TIME: 12/29/2018 1:41 pm REASON FOR STUDY: ABD PAIN (R10.9) K59.00 CONSTIPATION, UNSPECIFIED R10.9 UNSPECIFIED ABDOMINAL PA IN COMPARISON: None. TECHNIQUE: CT scan of the abdomen and pelvis performed without intravenous or oral contrast. Images reviewed with lung, soft tissue, and bone windows. Reconstructed coronal and sagittal MPR images revi ewed. All images stored on PACS. All CT scanners at this facility use dose modulation, iterative reconstruction, and/or weight based d osing when appropriate to reduce radiation dose to as low as reasonably achievable (ALARA). [facility]: Dose Right [facility]: CareDose [facility]: Dose Right [facility]: Teradose 4D [facility]: Smart Beet[employer] Beats RADIATION DOSE: CT Rad equipment meets quality standard of care and radiation dose reduction techniq ues were employed. CTDIvol: 18.9 mGy. DLP: 1152 mGy-cm.mGy. LIMITATIONS: None. FINDINGS: LOWER CHEST: No significant findings. No nodules or infiltrates. NON-CONTRASTED LIVER, SPLEEN, ADRENALS: Evaluation limited by lack of IV contrast. No identified sign ificant masses. PANCREAS: No masses. No peripancreatic inflammatory changes. GALLBLADDER: Gallstones. No inflammatory changes to suggest cholecystitis. RIGHT KIDNEY AND URETER: No suspicious masses. Assessment limited by lack of IV contrast. No signif icant calcifications. No hydronephrosis or hydroureter. LEFT KIDNEY AND URETER: No suspicious masses. Assessment limited by lack of IV contrast. No signifi cant calcifications. No hydronephrosis or hydroureter. AORTA AND RETROPERITONEUM: No aneurysm. No retroperitoneal masses or adenopathy. BOWEL AND PERITONEAL CAVITY: No obvious masses or inflammatory changes. No free fluid. APPENDIX: Normal. PELVIS, BLADDER, AND ABDOMINAL WALL:No abnormal masses. No free fluid. Bladder normal. BONES: No significant findings. OTHER: No other significant finding. IMPRESSION: GALLSTONES. NO OTHER SIGNIFICANT OR ACUTE PROCESS IN THE ABDOMEN OR PELVIS. COMMENT: Quality ID # 436: Final reports with documentation of one or more dose reduction techniques (e.g., Automated exposure control, adjustment of the mA and/or kV according to patient size, use of iterative reconstruction technique) TECHNICAL DOCUMENTATION: JOB ID: [id number]- All Rights Reserved Reading location - IP/workstation name: [email or web address]
== END ==
LOC: RAD 11:18
PROVIDERS: ATTEND Family Medicine
DX: K80.80 Other cholelithiasis without obstruction (principal); R10.9 Unspecified abdominal pain
CPT/HCPCS: 74176

== ENCOUNTER → 2019-03-08 | Outpatient (CLI) | payer MEDICARE ==
--- NOTE | 2019-03-08 16:51 | RADIOLOGY REPORT (SQ) ---
EXAM DESCRIPTION: U/S THYROID/SFT TISS HD NECK COMPLETED DATE/TIME: 03/08/2019 4:23 pm REASON FOR STUDY: E04.1 NONTOXIC SINGLE THYROID NODULE E04.1 NONTOXIC SINGLE THYROID NODULE COMPARISON: None. TECHNIQUE: Dynamic and static matt-scale images acquired of the thyroid gland. Selected additional c olor/power Doppler images recorded. All images stored to PACS. LIMITATIONS: None. FINDINGS: RIGHT LOBE: Normal size. Homogeneous echotexture. There are 2 small cystic nodules measu ring up to 11 mm. There is an 8 mm isoechoic well-circumscribed solid nodule in the upper pole. No echogenic foci. LEFT LOBE: Normal size. Homogeneous echotexture. 9 mm cystic nodule. 8 mm hypoechoic well-circumsc ribed solid nodule. No echogenic foci. ISTHMUS: Normal size. Homogeneous echotexture. No cystic or solid masses. OTHER: No other significant finding. IMPRESSION: Bilateral thyroid nodules. 1 year ultrasound follow-up is recommended. TECHNICAL DOCUMENTATION: JOB ID: [id number] [employer]- All Rights Reserved Reading location - IP/workstation name: [email or web address]
== END ==
LOC: RAD 15:14
PROVIDERS: ATTEND Family Medicine
DX: E04.1 Nontoxic single thyroid nodule (principal)
CPT/HCPCS: 76536

== ENCOUNTER → 2019-06-21 | Outpatient (CLI) | payer MEDICARE ==
--- NOTE | 2019-06-21 11:04 | RADIOLOGY REPORT (SQ) ---
EXAM DESCRIPTION: CHEST 2 VIEWS COMPLETED DATE/TIME: 06/21/2019 10:45 am REASON FOR STUDY: COPD COMPARISON: 10/31/2015 EXAM PARAMETERS: NUMBER OF VIEWS: two views TECHNIQUE: Digital Frontal and Lateral radiographic views of the chest acquired. RADIATION DOSE: NA LIMITATIONS: none FINDINGS: LUNGS AND PLEURA: Incomplete inspiration with mild linear basilar opacities, likely atelec tasis. No pleural effusion. No pneumothorax. Unchanged mild biapical pleural thickening. Increase d AP diameter of the thorax. MEDIASTINUM AND HILAR STRUCTURES: No masses or contour abnormalities. HEART AND VASCULAR STRUCTURES: Heart normal size. No evidence for failure. Aortic atherosclerosis. BONES: No acute findings. HARDWARE: None in the chest. OTHER: No other significant finding. IMPRESSION: Emphysematous change with minimal linear left basilar opacities, likely atelectasis. TECHNICAL DOCUMENTATION: JOB ID: [id number] [employer]- All Rights Reserved Reading location - IP/workstation name: [email or web address]
== END ==
LOC: RAD 10:32
PROVIDERS: ATTEND Family Medicine
DX: J44.9 Chronic obstructive pulmonary disease, unspecified (principal)
CPT/HCPCS: 71046

== ENCOUNTER → 2020-07-31 | Outpatient (CLI) | payer MEDICARE ==
--- NOTE | 2020-07-31 13:35 | RADIOLOGY REPORT (SQ) ---
EXAM DESCRIPTION: U/S THYROID/SFT TISS HD NECK IMAGES COMPLETED DATE/TIME: 07/31/2020 9:49 am REASON FOR STUDY: THYROID NODULE E04.1 NONTOXIC SINGLE THYROID NODULE COMPARISON: Ultrasound of thyroid gland from 03/08/2019. TECHNIQUE: Dynamic and static matt-scale images acquired of the thyroid gland. Selected additional c olor/power Doppler images recorded. All images stored to PACS. LIMITATIONS: None. FINDINGS: RIGHT LOBE: The right lobe of the thyroid gland measures 5.1 x 1.6 x 1.8 cm. The echotex ture of the lobe is heterogeneous. There are 3 separate nodules in the right lobe of the thyroid gla nd: 1) 9 x 6 x 8 mm solid isoechoic nodule in the superior pole of the lobe that is wider than tall, has smooth margins and contains no echogenic foci (TR3) ; the nodule previously measured 8 x 7 x 5 mm. 2) 10 x 11 x 9 mm mixed cystic and solid hypoechoic nodule in the inferior pole of the lobe that is w ider than tall, has ill-defined margins and contains no echogenic foci (TR3) ; the nodule previously measured 7 x 8 x 5 mm. 3) 11 x 11 x 8 mm cystic anechoic nodule in the inferior pole of the lobe that is wider than tall, nair s smooth margins and contains no echogenic foci (TR1) ; the nodule previously measured 11 x 12 x 10 m m. LEFT LOBE: The left lobe of the thyroid gland measures 4.9 x 1.9 x 2 cm. The echotexture of the lobe is heterogeneous. There are 2 nodules in the left lobe of the thyroid gland: 1) 12 x 11 x 10 mm cystic anechoic nodule in the superior pole of the lobe that is wider than tall, h as smooth margins and contains internal comet-tail artifacts (TR1) ; the nodule previously measured 9 x 8 x 8 mm. 2) 10 x 9 x 8 mm solid isoechoic nodule in the inferior pole of the lobe that is wider than tall, has ill-defined margins and contains no echogenic foci (TR3) ; the nodule previously measured 8 x 8 x 6 mm. ISTHMUS: The isthmus of the thyroid gland measures 4 mm in AP diameter. OTHER: No other finding. IMPRESSION: Bilateral thyroid nodules as detailed above ; on average the nodules have minimally incr eased in size since the ultrasound from 03/08/2019. None on the nodules (based on TI-RADS) meet the c riteria for FNA. Continued follow-up is recommended. TECHNICAL DOCUMENTATION: JOB ID: [id number] 2010 [employer]- All Rights Reserved Reading location - IP/workstation name: [email or web address]
== END ==
LOC: RAD 09:07
PROVIDERS: ATTEND Family Medicine
DX: E04.1 Nontoxic single thyroid nodule (principal)
CPT/HCPCS: 76536